=== PATIENT | female | born 2000 | race African-American/Black ===

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

== ENCOUNTER 2022-01-02 16:58 | Emergency (ER) | payer MEDICAID, OTHER ==
[~2022-01-02] VITALS: Ht 175.3 cm; Wt 63.5 kg
--- NOTE | 2022-01-02 17:23 | NUR ---
BIBS WITH C/C OF PRODUCTIVE COUGH FOR 2 DAYS. DENIES FEVER BUT TEMP OF 100.6 IN ED. 98% ON ROOM AIR, REPORTS SOB WITH NASAL CONGESTION. NO MEDICAL HX.
[2022-01-02 17:26] VITALS: BP_SYST 156
--- NOTE | 2022-01-02 20:50 | NUR ---
Received pt in bed 5, w/ c/o cough x 48 hours and cold s/s, Hx of asthma. No distress noted at present, w/ non-productive cough.
--- NOTE | 2022-01-02 21:00 | NUR ---
Seen by . Pt recieved resp Tx at bedside.
--- NOTE | 2022-01-02 21:59 | NUR ---
Covid 19 test collected and sent to lab. Pending results.
[2022-01-02] MEDS ORDERED: IPRATROPIUM/ALBUTEROL SULFATE 3 ML AMPUL.NEB (DUONEB) INH ONE (23:00)
--- NOTE | 2022-01-02 23:00 | NUR ---
S/p Resp Tx, pt w/ decreased wheezing to upper lobes w/ productive cough - minimal clear color. Addendum: 01/02/22 at 2358 by [id number] minimal amount of sputum, clear color
--- NOTE | 2022-01-03 00:02 | NUR ---
Influenza A/B, Covid 19 rapid test neg. ED MD made aware.
[2022-01-03] MEDS ORDERED: ALBMDI INH (00:19)
[2022-01-03] MEDS ORDERED: PRED20TA PO (00:19)
[2022-01-03 00:25] VITALS: BP_SYST 133
--- NOTE | 2022-01-03 00:28 | NUR ---
Patient given written and verbal discharge instructions and verbalizes understanding. ER MD discussed with patient the results and treatment provided. Patient in stable condition. ID arm band removed. Rx of albuterol and steroid rx given. Patient educated on pain management and to follow up with PMD. Pain Scale 0/10. Opportunity for questions provided and answered. Medication side effect fact sheet provided. Patient A/Ox4, VSS, ambulatory, resp even and unlabored. Patient is in stable condition upon discharge. Nad noted at this time.
== END 2022-01-03 00:28 | disposition home or self-care (01) ==
LOC: SED 16:58
DX: J06.9 Acute upper respiratory infection, unspecified (principal); J45.901 Unspecified asthma with (acute) exacerbation; R05.9 Cough, unspecified; R06.02 Shortness of breath; R50.9 Fever, unspecified; Z88.1 Allergy status to other antibiotic agents; Z79.899 Other long term (current) drug therapy; Z20.822 Contact with and (suspected) exposure to COVID-19
CPT/HCPCS: 36415; 71045; 94640; 99284